=== PATIENT | male | born 1980 | race Caucasian/White ===

== ENCOUNTER 2019-07-12 07:11 | Day surgery (SDC) | payer BC ==
[~2019-07-12 07:11] MED LIST: Lactated Ringers 1,000 ML IV SCH; Sodium Chloride 0.9% 10 ML Syringe FLUSH PRN
[2019-07-12] MEDS ORDERED: Propofol 200 MG/20 ML SDV IV ONE (07:12)
[2019-07-12] MEDS ORDERED: Midazolam 1 MG/ML 2 ML SDV IV ONE (07:12)
[2019-07-12] MEDS ORDERED: Ondansetron 4 MG/2 ML SDV IVPUSH ONE (07:12)
[2019-07-12] MEDS ORDERED: fentaNYL 100 MCG/2 ML SDV IV ONE (07:12)
[2019-07-12] MEDS ORDERED: Dexmedetomidine 200 MCG/2 ML SDV IV ONE (07:12)
[2019-07-12] MEDS ORDERED: Lactated Ringers 1,000 ML IV ONE (07:12)
[2019-07-12] MEDS ORDERED: ceFAZolin 2 GM in Premix Bag 1 BAG IV ONE (08:00)
[2019-07-12] MEDS ORDERED: Lidocaine 1% with EPINEPHrine 1:100,000 20 ML MDV INJECT ONE (09:07)
[2019-07-12] MEDS ORDERED: Bupivacaine 0.5% 30 ML SDV INJECT ONE (09:07)
--- NOTE | 2019-07-12 09:49 | PCM.OPNOTE ---
- General Post-Op/Procedure Note Date of Surgery/Procedure: 07/12/19 Operative Procedure(s): rih repair with mesh Findings: indirect hernia Pre Op Diagnosis: rih without obstruction or gangrene Post-Op Diagnosis: Same Anesthesia Technique: Local (19 ml 1 % lido with epi/0.5% buvipicaine), MAC Primary Surgeon: Hayes Morejon Anesthesia Provider: Tresa Cee Pathology: none sent Complications: None Condition: Good Free Text/Narrative:: see dictation [id number]
[2019-07-12] MEDS ORDERED: Acetaminophen/HYDROcodone 325-5 MG Tab PO PRN (09:50)
--- NOTE | 2019-07-12 15:57 | OR ---
DATE OF OPERATION: 07/12/2019 SURGEON: Hayes Morejon MD PROCEDURE PERFORMED: Right inguinal hernia repair. PREOPERATIVE DIAGNOSIS: Right inguinal hernia without obstruction or gangrene. It is an indirect hernia. POSTOPERATIVE DIAGNOSIS: Right inguinal hernia without obstruction or gangrene. It is an indirect hernia. INDICATIONS FOR PROCEDURE: This is a 39-year-old white male who is referred with a symptomatic inguinal hernia, was offered and accepted repair. INTRAOPERATIVE FINDINGS: As follows: A total of 19 mL of 1:1 mixture of 1% lidocaine with epinephrine and 0.5% bupivacaine was used for our local. This was done under local MAC. An indirect hernia without obstruction was noted. This was repaired with a Phasix plug and patch, medium size, reference number [id number], lot number [id number], expiration date 11/05/2020. DESCRIPTION OF OPERATION: After an excellent IV sedation was administered, the patient was prepped and draped in the usual sterile manner. We started our local block by infiltrating the planned incision site which was approximately a line that intercepted the inguinal ligament, nursing home between the anterior- superior iliac spine and the symphysis pubis. A wheal was then raised approximately 1 fingerbreadth medial to the anterior-superior iliac spine and then a deep intramuscular injection was made. More local was then used to infiltrate in the line from this point to the umbilicus and then down along the inguinal ligament. Our incision was then made with a #15 scalpel blade. The underlying subcu fat was divided using electrocautery. Superficial inferior epigastric vessels were clamped, divided, and tied with 2-0 Vicryl ties. On exposure of the external oblique, more local was used to infiltrate under the external oblique and then incision was carried out through the external ring. Attempts to visualize the ilioinguinal nerve were not successful. The cord was mobilized and controlled with 1-inch [place] drain. The cord was then skeletonized and an indirect hernia sac was identified and dissected free from the surrounding structures. This was twisted on itself and then ligated with an 0 Ethibond. The excess sac was excised and the hernia sac was reduced. The Phasix plug was then inserted into the defect and tacked into position with 2-0 Vicryl. The keyhole mesh was then cut to size and a vertical keyhole was carried out, and the edge of the mesh was tacked to the inferior edge of the inguinal ligament. The keyhole was closed with a running 2-0 Vicryl as well. Optifast was used then to tack the mesh to the floor of the inguinal canal. The area was irrigated. The aponeurosis was closed with a running 3-0 Vicryl, 3-0 Vicryl was used to approximate Byron's fascia as well as the skin. Steri- Strips were applied. Needle, sponge, and instrument counts were reported as correct. The patient was taken to recovery room in good condition. /[id number] /MODL
== END 2019-07-12 12:00 | disposition home or self-care (01) ==
LOC: FB.SDS 07:11
PROVIDERS: ATTEND Surgery
DX: K40.90 Unilateral inguinal hernia, without obstruction or gangrene, not specified as recurrent (principal)
CPT/HCPCS: 49505; 94150; C1713; C1781; J0690; J2250; J2405; J2704; J3010; J3490; J7120